=== PATIENT | male | born 1960 | race Caucasian/White ===

== ENCOUNTER 2019-03-21 10:36 | Outpatient (CLI) | payer OTHER | END 2019-03-21 10:48 | disposition home or self-care (01) | LOC: SONOGRAMA 10:36 → MAMO-SONO 10:45 → SONOGRAMA 10:48 | DX: E03.8 Other specified hypothyroidism (principal); I10 Essential (primary) hypertension; M54.5 Low back pain; Z01.810 Encounter for preprocedural cardiovascular examination; E78.49 Other hyperlipidemia ==

== ENCOUNTER 2019-04-13 08:36 | Outpatient (CLI) | payer OTHER | END 2019-04-13 09:58 | disposition home or self-care (01) | LOC: SONOGRAMA 08:36 | DX: E04.1 Nontoxic single thyroid nodule (principal); M06.36 Rheumatoid nodule, knee ==